=== PATIENT | female | born 1950 | race Two or more races ===

== ENCOUNTER → 2022-05-14 | Emergency (ER) | payer OTHER ==
[~2022-05-14] VITALS: Ht 162.6 cm; Wt 75.3 kg
== END | disposition home or self-care (01) ==
LOC: ER 13:41
DX: S42.352A Displaced comminuted fracture of shaft of humerus, left arm, initial encounter for closed fracture (principal); S20.213A Contusion of bilateral front wall of thorax, initial encounter; S60.222A Contusion of left hand, initial encounter; W18.30XA Fall on same level, unspecified, initial encounter; Y93.9 Activity, unspecified; Y92.018 Other place in single-family (private) house as the place of occurrence of the external cause; Y99.9 Unspecified external cause status; Z88.8 Allergy status to other drugs, medicaments and biological substances

== ENCOUNTER 2022-05-20 12:54 | Day surgery (SDC) | payer OTHER | END 2022-05-21 08:00 | disposition home or self-care (01) | LOC: CIR.AMB 12:54 | PROVIDERS: ATTEND Orthopaedic Surgery | DX: S42.232A 3-part fracture of surgical neck of left humerus, initial encounter for closed fracture (principal); Z87.891 Personal history of nicotine dependence | CPT/HCPCS: 24515; 23430; L8699 ==